=== PATIENT | male | born 1980 | race African-American/Black ===

== ENCOUNTER 2020-03-22 08:55 | Emergency (ER) | payer OTHER ==
[~2020-03-22] VITALS: Ht 170.2 cm; Wt 154.5 kg
--- NOTE | 2020-03-22 09:27 | PHYS DOC ---
Past History Past Medical History: Hypertension Adult General Chief Complaint Chief Complaint: NAUSEA/VOMITING/DIARRHEA HPI HPI Patient is a 39-year-old male who presents with nausea and vomit and generalized fatigue. Patient reports this is an acute on chronic problem which was first noticed approximately 2 weeks ago. Patient reports recently relocating from [place]. States he has a past medical history of hypertension for which he is being treated medically, has distant history of kidney disease without any invasive or aggressive interventions such as hemodialysis. Reports approximately 2 weeks ago having generalized fatigue and malaise. States in the past 48 hours he developed some nausea and has had x2 nonbloody nonbilious episodes of emesis. He has no other concerning signs or symptoms such as URI- like symptoms, fever, chest pain, shortness of breath, changes in bladder or bowel function but does admit mild weight gain and lower extremity edema. Patient has been taking all medications as previously instructed, does not check his blood pressure on a daily basis and thus, does not know what he typically averages. Admits he did not take his blood pressure medications until just prior to arriving to our ER this morning Review of Systems Review of Systems Fourteen body systems of review of systems have been reviewed. See HPI for pertinent positives and negative responses, other aggarwal all other systems are negative, non-pertinent or non-contributory Allergies Allergies Allergies Coded Allergies Type Severity Reaction Last Updated Verified No Known Drug Allergies 03/22/20 No Physical Exam Physical Exam Constitutional: Well developed, well nourished, morbidly obese no acute distress, non-toxic appearance. HENT: Normocephalic, atraumatic, bilateral external ears normal, oropharynx moist, no oral exudates, nose normal. Eyes: PERRLA, EOMI, conjunctiva normal, no discharge. Neck: Normal range of motion, no tenderness, supple, no stridor. Cardiovascular: Heart rate regular, sinus rhythm, no murmurs rubs or gallops Lungs & Thorax: Bilateral breath sounds diminished bilaterally due to patient body habitus, no respiratory distress, mildly decreased lung sounds in left lower lobe base Abdomen: Bowel sounds normal, soft, no tenderness, no rebound no guarding no masses, no pulsatile masses. Nonsurgical abdomen, no peritoneal signs Skin: Warm, dry, no erythema, no rash. Back: No tenderness, no CVA tenderness. Extremities: No tenderness, no cyanosis, no clubbing, ROM intact, 3+ pitting edema bilaterally Neurologic: Alert and oriented X 3, grossly normal motor & sensory function, no focal deficits noted. Psychologic: Affect normal, judgement normal, mood normal. Current Patient Data Vital Signs Vital Signs Date Time Temp Pulse Resp B/P (MAP) Pulse Ox O2 Delivery O2 Flow Rate FiO2 03/22/20 12:50 65 16 162/119 (133) 98 03/22/20 09:00 98.9 Room Air Lab Results Laboratory Tests Test 03/22/20 09:58 03/22/20 11:50 White Blood Count 4.1 x10^3/uL (4.0-11.0) Red Blood Count 3.15 x10^6/uL (4.30-5.70) Hemoglobin 8.7 g/dL (13.0-17.5) Hematocrit 26.1 % (39.0-53.0) Mean Corpuscular Volume 83 fL (79-100) Mean Corpuscular Hemoglobin 28 pg (25-35) Mean Corpuscular Hemoglobin Concent 34 g/dL (31-37) Red Cell Distribution Width 15.5 % (11.5-14.5) Platelet Count 146 x10^3/uL (140-400) Neutrophils (%) (Auto) 66 % (31-73) Lymphocytes (%) (Auto) 23 % (24-48) Monocytes (%) (Auto) 8 % (0-9) Eosinophils (%) (Auto) 2 % (0-3) Basophils (%) (Auto) 1 % (0-3) Neutrophils # (Auto) 2.7 x10^3uL (1.8-7.7) Lymphocytes # (Auto) 1.0 x10^3/uL (1.0-4.8) Monocytes # (Auto) 0.3 x10^3/uL (0.0-1.1) Eosinophils # (Auto) 0.1 x10^3/uL (0.0-0.7) Basophils # (Auto) 0.0 x10^3/uL (0.0-0.2) Sodium Level 145 mmol/L (136-145) Potassium Level 3.2 mmol/L (3.5-5.1) Chloride Level 108 mmol/L (98-107) Carbon Dioxide Level 25 mmol/L (21-32) Anion Gap 12 (6-14) Blood Urea Nitrogen 58 mg/dL (8-26) Creatinine 8.4 mg/dL (0.7-1.3) Estimated GFR (Cockcroft-Gault) 8.7 BUN/Creatinine Ratio 7 (6-20) Glucose Level 100 mg/dL (70-99) Calcium Level 6.8 mg/dL (8.5-10.1) Total Bilirubin 0.8 mg/dL (0.2-1.0) Aspartate Amino Transf (AST/SGOT) 33 U/L (15-37) Alanine Aminotransferase (ALT/SGPT) 54 U/L (16-63) Alkaline Phosphatase 53 U/L (46-116) Troponin I Quantitative 0.034 ng/mL (0-0.055) Total Protein 5.7 g/dL (6.4-8.2) Albumin 3.0 g/dL (3.4-5.0) Albumin/Globulin Ratio 1.1 (1.0-1.7) Lipase 129 U/L (73-393) Urine Collection Type Unknown Urine Color Yellow Urine Clarity Clear Urine pH 6.0 Urine Specific Staples 1.020 Urine Protein >100 mg/dl (NEG-TRACE) Urine Glucose (UA) Neg mg/dL (NEG) Urine Ketones (Stick) Neg mg/dL (NEG) Urine Blood Small (NEG) Urine Nitrite Neg (NEG) Urine Bilirubin Neg (NEG) Urine Urobilinogen Dipstick 0.2 mg/dL (0.2 mg/dL) Urine Leukocyte Esterase Neg (NEG) Urine RBC 6-10 /HPF (0-2) Urine WBC Occ /HPF (0-4) Urine Squamous Epithelial Cells Occ /LPF Urine Bacteria 0 /HPF (0-FEW) Urine Opiates Screen Neg (NEG) Urine Methadone Screen Neg (NEG) Urine Barbiturates Neg (NEG) Urine Phencyclidine Screen Neg (NEG) Urine Amphetamine/Methamphetamine Neg (NEG) Urine Benzodiazepines Screen Neg (NEG) Urine Cocaine Screen Neg (NEG) Urine Cannabinoids Screen Neg (NEG) Urine Ethyl Alcohol Neg (NEG) EKG EKG EKG ordered and interpreted by myself at 0924 hrs. as sinus rhythm at 77 bpm, prolonged QTC at 520 otherwise unremarkable intervals, no axis deviation, no ischemic findings, no STEMI Radiology/Procedures Radiology/Procedures PROCEDURE: PORTABLE CHEST 1V PORTABLE CHEST 1V Clinical indications: Epigastric pain with nausea and vomiting COMPARISON: None available. Findings: There is vascular congestion and mild perihilar interstitial pulmonary edema. Small left-sided pleural effusion is seen. No pneumothorax is evident. Cardiomegaly is evident. Mediastinum is unremarkable. IMPRESSION: Mild CHF or fluid overload. Electronically signed by: Ziyad Potter MD (03/22/2020 10:54 AM) [id number] PROCEDURE: KUB AP supine view of the abdomen Clinical indications: Epigastric pain with nausea and vomiting. FINDINGS: No obstructive bowel pattern is seen. There is mild diffuse fecal retention throughout the colon and rectum. Calcified phleboliths are seen within both sides of the anatomic pelvis. Osseous structures are intact. IMPRESSION: No obstructive bowel pattern. Electronically signed by: Ziyad Potter MD (03/22/2020 10:53 AM) [id number] Heart Score HEART Score for Chest Pain: HEART Score for Chest Pain Response (Comments) Value History Slighlty/Non-Suspicious 0 ECG Normal 0 Age < 45 0 Risk Factors >3 Risk Factors or Hx CAD 2 Troponin < Normal Limit 0 Total 2 Risk Factors: Risk Factors: DM, Current or recent (<one month) smoker, HTN, HLP, family hist ory of CAD, obesity. Risk Scores: Risk Factors: DM, Current or recent (<one month) smoker, HTN, HLP, family history of CAD, obesity. Course & Med Decision Making Course & Med Decision Making Pertinent Labs and Imaging studies reviewed. (See chart for details) Discussed most likely diagnosis with patient of acute renal failure likely secondary to grossly uncontrolled hypertension. Cannot exclude COVID-19 at this time and is currently pending testing. I discussed with patient need for admission for nephrology consultation and he was amenable Attempts were made to transfer patient to but they were full. As a result, [facility] was contacted, I spoke with Dr. Dias, transfer physician who accepted patient under his care Patient made aware of plan of care to transfer to outlying facility for higher acuity of care and continued medical management, he was amenable. All questions and concerns addressed prior to ER departure in stable condition Sosa Disclaimer Dragon Disclaimer This electronic medical record was generated, in whole or in part, using a voice recognition dictation system. Departure Departure: Impression: Primary Impression: ARF (acute renal failure) Additional Impressions: HTN (hypertension) Morbid obesity Proteinuria Disposition: 02 DC/TRF OTHER SHORT TERM HOS ([facility]) Admitting Physician: Other (Dr. Dias) Condition: STABLE Referrals: PCP,NO (PCP) Problem Qualifiers SITA LI DO Mar 22, 2020 09:27
--- NOTE | 2020-03-22 10:17 | EKG ---
[address] [address] Test Date: 2020-03-22 Test Time: 09:19:51 Pat Name: JAYJAY CHAVEZ Department: Room: Gender: M Ethyl Blender: : 1980 Requested By: SITA LI Order Number: [id number] Reading MD: Measurements Intervals [place] Rate: 77 P: 28 VT: 148 QRS: 29 QRSD: 98 T: 24 QT: 458 QTc: 520 Interpretive Statements SINUS RHYTHM PROLONGED QT NO SPECIFIC ECG ABNORMALITIES RI6.02 No previous ECG available for comparison
[2020-03-22 10:23] LABS: BASO % 1 % (0-3); EOS # 0.1 x10^3/uL (0.0-0.7); EOS % 2 % (0-3); HEMATOCRIT 26.1 % (39.0-53.0); HEMOGLOBIN 8.7 g/dL (13.0-17.5); LYMPH % 23 % (24-48); MEAN CORPUSCULAR HEMOGLOBIN 28 pg (25-35); MEAN CORPUSCULAR HGB CONC 34 g/dL (31-37); MEAN CORPUSCULAR VOLUME 83 fL (79-100); MONO # 0.3 x10^3/uL (0.0-1.1); MONO % 8 % (0-9); NEUT # 2.7 x10^3uL (1.8-7.7); NEUT % 66 % (31-73); PLATELET COUNT 146 x10^3/uL (140-400); RED BLOOD COUNT 3.15 x10^6/uL (4.30-5.70); RED CELL DISTRIBUTION WIDTH 15.5 % (11.5-14.5); WHITE BLOOD COUNT 4.1 x10^3/uL (4.0-11.0)
[2020-03-22 10:33] LABS: CALCIUM 6.8 mg/dL (8.5-10.1); CREATININE 8.4 mg/dL (0.7-1.3); GFR 8.7; POTASSIUM 3.2 mmol/L (3.5-5.1)
[2020-03-22 10:38] LABS: ALBUMIN/GLOBULIN RATIO 1.1 (1.0-1.7); TOTAL BILIRUBIN 0.8 mg/dL (0.2-1.0); TOTAL PROTEIN 5.7 g/dL (6.4-8.2)
--- NOTE | 2020-03-22 10:56 | RAD ---
AP supine view of the abdomen Clinical indications: Epigastric pain with nausea and vomiting. FINDINGS: No obstructive bowel pattern is seen. There is mild diffuse fecal retention throughout the colon and rectum. Calcified phleboliths are seen within both sides of the anatomic pelvis. Osseous structures are intact. IMPRESSION: No obstructive bowel pattern. Electronically signed by: Ziyad Potter MD (03/22/2020 10:53 AM) [id number]
--- NOTE | 2020-03-22 10:57 | RAD ---
PORTABLE CHEST 1V Clinical indications: Epigastric pain with nausea and vomiting COMPARISON: None available. Findings: There is vascular congestion and mild perihilar interstitial pulmonary edema. Small left-sided pleural effusion is seen. No pneumothorax is evident. Cardiomegaly is evident. Mediastinum is unremarkable. IMPRESSION: Mild CHF or fluid overload. Electronically signed by: Ziyad Potter MD (03/22/2020 10:54 AM) [id number]
[2020-03-22 12:50] VITALS: BP 162/119
[2020-03-22 12:57] LABS: AMPHETAMINE/METHAMPHETAMINE NEG (NEG); BARBITURATES NEG (NEG); BENZODIAZEPINES NEG (NEG); CANNABINOIDS NEG (NEG); COCAINE NEG (NEG); METHADONE NEG (NEG); OPIATES NEG (NEG); PHENCYCLIDINE NEG (NEG)
[2020-03-22 12:59] LABS: BILIRUBIN,URINE NEG (NEG); CLARITY,URINE CLEAR; COLOR,URINE YELLOW; GLUCOSE,URINE NEG (NEG); NITRITE,URINE NEG (NEG); UROBILINOGEN,URINE 0.2 mg/dL (0.2 mg/dL)
[2020-03-22 13:00] LABS: BACTERIA,URINE 0 /HPF (0-FEW); SQUAMOUS EPITHELIAL CELL,UR OCC /LPF; WBC,URINE OCC /HPF (0-4)
--- NOTE | 2020-03-24 15:05 | NUR ---
IP: notified nurse Fern of COVID result.
== END 2020-03-22 13:15 | disposition short-term general hospital (02) ==
LOC: ER 08:55
DX: N17.9 Acute kidney failure, unspecified (principal); I10 Essential (primary) hypertension; R80.9 Proteinuria, unspecified; E66.01 Morbid (severe) obesity due to excess calories; Z20.828 Contact with and (suspected) exposure to other viral communicable diseases; Z68.43 Body mass index [BMI] 50.0-59.9, adult
CPT/HCPCS: 36415; 71045; 74018; 80053; 80307; 81001; 83690; 84484; 85025; 93005; 99285; C9803; U0003